=== PATIENT | female | born 1960 | race African-American/Black ===

== ENCOUNTER 2019-09-30 14:17 | Emergency (ER) | payer OTHER ==
[~2019-09-30] VITALS: Ht 167.6 cm; Wt 100.5 kg
[2019-09-30] MEDS ORDERED: CHOL100018 PO (14:54)
[2019-09-30] MEDS ORDERED: BACL10TA PO (14:54)
[2019-09-30] MEDS ORDERED: FAMO20 PO (14:54)
[2019-09-30] MEDS ORDERED: LEVO25TA9 PO (14:54)
[2019-09-30] MEDS ORDERED: HYDR25TA PO (14:54)
[2019-09-30] MEDS ORDERED: DIAZ5 PO (14:54)
[2019-09-30] MEDS: CYCLOBENZAPRINE HCL 10 MG TABLET PO ONE (15:32)
[2019-09-30 16:42] VITALS: BP 137/86
== END 2019-09-30 17:24 | disposition home or self-care (01) ==
LOC: EMS 14:19
DX: M62.838 Other muscle spasm (principal); M43.6 Torticollis; E03.9 Hypothyroidism, unspecified; I10 Essential (primary) hypertension; G47.00 Insomnia, unspecified; Z90.710 Acquired absence of both cervix and uterus; Z79.899 Other long term (current) drug therapy
CPT/HCPCS: 70450